=== PATIENT | female | born 1960 | race Two or more races ===

== ENCOUNTER 2020-06-11 14:09 | Emergency (ER) | payer OTHER ==
[~2020-06-11 14:09] MED LIST: BACTRIM DS TAB1 EACH PO; CLEOCIN HCL300 MG PO; CYCLOBENZAPRINE10 MG PO; IBUPROFEN600 MG PO; NAPROSYN500 MG PO
[2020-06-11 14:51] LABS: HEMOGLOBIN 14.8 gm/dl (12.3-15.3); RED BLOOD COUNT 4.48 M/UL (4.00-5.10); WHITE BLOOD COUNT 10.2 K/UL (4.5-11.0)
[2020-06-11 15:19] LABS: BUN/CREATININE RATIO 21 (0-10)
[2020-06-11] MEDS ORDERED: K-DUR TAB 10 M10 MEQ PO (17:55)
[2020-06-11] MEDS ORDERED: ZOFRAN4 MG PO (17:55)
== END 2020-06-11 18:30 | disposition home or self-care (01) ==
LOC: ER1 14:09
PROVIDERS: Family Medicine
DX: E87.6 Hypokalemia (principal); I10 Essential (primary) hypertension; E11.9 Type 2 diabetes mellitus without complications; Z90.710 Acquired absence of both cervix and uterus; Z20.822 Contact with and (suspected) exposure to COVID-19
CPT/HCPCS: 80053; 81001; 82150; 83690; 85025; 96374; 99284; J2405; U0002

== ENCOUNTER 2020-08-16 14:05 | Emergency (ER) | payer OTHER ==
[~2020-08-16 14:05] MED LIST changes: +K-DUR TAB 10 M10 MEQ PO; +ZOFRAN4 MG PO
[2020-08-16 14:50] LABS: HEMOGLOBIN 14.6 gm/dl (12.3-15.3); RED BLOOD COUNT 4.48 M/UL (4.00-5.10); WHITE BLOOD COUNT 12.1 K/UL (4.5-11.0)
[2020-08-16 15:08] LABS: BUN/CREATININE RATIO 26 (0-10)
[2020-08-16] MEDS ORDERED: ZOFRAN4 MG PO (17:24)
== END 2020-08-16 17:35 | disposition home or self-care (01) ==
LOC: ER1 14:05
PROVIDERS: Preventive Medicine Occupational Medicine
DX: A08.4 Viral intestinal infection, unspecified (principal); I10 Essential (primary) hypertension; E11.9 Type 2 diabetes mellitus without complications; Z20.822 Contact with and (suspected) exposure to COVID-19; Z79.4 Long term (current) use of insulin; Z90.710 Acquired absence of both cervix and uterus
CPT/HCPCS: 0240U; 74019; 80053; 81001; 82140; 82550; 82553; 83690; 83874; 84484; 85025; 85652; 86140; 87086; 96374; 96375; 99284; C9113; J2405

== ENCOUNTER 2021-09-10 13:29 | Emergency (ER) | payer OTHER ==
[2021-09-10 14:13] LABS: RED BLOOD COUNT 3.72 M/UL (4.00-5.10); WHITE BLOOD COUNT 17.3 K/UL (4.5-11.0)
== END 2021-09-10 17:12 | disposition left against medical advice (07) ==
LOC: ER1 13:29
PROVIDERS: Emergency Medicine
DX: R10.9 Unspecified abdominal pain (principal); R11.2 Nausea with vomiting, unspecified; E11.9 Type 2 diabetes mellitus without complications; I10 Essential (primary) hypertension
CPT/HCPCS: 80053; 81001; 83690; 85025

== ENCOUNTER 2021-09-11 10:19 | Inpatient (IN) | payer OTHER ==
[~2021-09-11] VITALS: Ht 157.5 cm; Wt 81.2 kg
[2021-09-11 11:53] LABS: HEMOGLOBIN 11.7 gm/dl (12.3-15.3); RED BLOOD COUNT 3.6 M/UL (4.00-5.10); WHITE BLOOD COUNT 16.5 K/UL (4.5-11.0)
[2021-09-11 12:08] LABS: BUN/CREATININE RATIO 15 (0-10)
[2021-09-12 04:22] LABS: WHITE BLOOD COUNT 12.4 K/UL (4.5-11.0)
[2021-09-12 04:32] LABS: RED BLOOD COUNT 3.14 M/UL (4.00-5.10)
[2021-09-12] MEDS ORDERED: OMEPRAZOLE20 MG PO (11:29)
[2021-09-12] MEDS ORDERED: CLONAZEPAM1 MG PO (11:29)
[2021-09-12] MEDS ORDERED: PROAIR HFA8.5 GM INH (11:30)
[2021-09-12] MEDS ORDERED: NOVOLOG 10100 UNITS/ SC (11:33)
[2021-09-12] MEDS ORDERED: LOSARTAN POTASS50 MG PO (11:33)
[2021-09-12] MEDS ORDERED: NAPROXEN500 MG PO (11:34)
[2021-09-12] MEDS ORDERED: NITROGLYCERIN0.4 MG SL (11:35)
[2021-09-12] MEDS ORDERED: AMLODIPINE BESYL5 MG PO (11:36)
[2021-09-12] MEDS ORDERED: GABAPENTIN800 MG PO (11:36)
[2021-09-12] MEDS ORDERED: ATORVASTATIN CA20 MG PO (11:37)
[2021-09-12] MEDS ORDERED: ASPIRIN 325MG325 MG PO (11:37)
[2021-09-12] MEDS ORDERED: BASAGLAR K100 UNIT/1 SQ (11:38)
[2021-09-12] MEDS ORDERED: LEVOTHYROXINE100 MCG PO (11:39)
[2021-09-12] MEDS ORDERED: LISINOPRIL10 MG PO (11:39)
[2021-09-12] MEDS ORDERED: METFORMIN HCL1000 MG PO (11:40)
[2021-09-12] MEDS ORDERED: LORATADINE10 MG PO (11:40)
[2021-09-12 12:05] LABS: CANDIDA ALBICANS Not Detected (Negative); CANDIDA KRUSEI Not Detected (Negative); CANDIDA TROPICALIS Not Detected (Negative); HAEMOPHILUS INFLUENZAE Not Detected (Negative); KLEBSIELLA OXYTOCA Not Detected (Negative); KLEBSIELLA PNEUMONIAE Not Detected (Negative); KPC-CARBAPENEM-RESISTANCE GENE Not Detected (Negative); PROTEUS Not Detected (Negative); PSEUDOMONAS AERUGINOSA Not Detected (Negative); SERRATIA MARCESANS Not Detected (Negative); STAPHYLOCOCCUS Not Detected (Negative); STAPHYLOCOCCUS AUREUS Not Detected (Negative); STREP AGALACTIAE (GROUP B) Not Detected (Negative); STREP PYOGENES (GROUP A) Not Detected (Negative); STREPTOCOCCUS Not Detected (Negative); vanA/B (VANCOMYCIN RESIST GENE Not Detected (Negative)
[2021-09-12 13:31] LABS: ESCHERICHIA COLI DETECTED (Negative)
[2021-09-13 06:37] LABS: RED BLOOD COUNT 3.15 M/UL (4.00-5.10); WHITE BLOOD COUNT 10.5 K/UL (4.5-11.0)
[2021-09-15 01:44] LABS: HEMOGLOBIN 10.4 gm/dl (12.3-15.3); RED BLOOD COUNT 3.25 M/UL (4.00-5.10)
[2021-09-16] MEDS ORDERED: CEFUROXIME250 MG PO (10:39)
[2021-09-16] MEDS ORDERED: GABAPENTIN400 MG PO (10:39)
[2021-09-16] MEDS ORDERED: HYDROCODON-ACE1 EAC4 PO (10:48)
[2021-09-16 10:53] LABS: WHITE BLOOD COUNT 11.6 K/UL (4.5-11.0)
[2021-09-16 11:04] LABS: RED BLOOD COUNT 3.71 M/UL (4.00-5.10)
== END 2021-09-16 13:45 | disposition home or self-care (01) | DRG 872 ==
LOC: ER1 10:19 → CDU 15:30 → MED SURG 4 15:30
PROVIDERS: Emergency Medicine; Internal Medicine; Physician Assistant Medical; ADMIT Internal Medicine
DX: A41.51 Sepsis due to Escherichia coli [E. coli] (principal); N17.9 Acute kidney failure, unspecified; E87.1 Hypo-osmolality and hyponatremia; N10 Acute pyelonephritis; Z20.822 Contact with and (suspected) exposure to COVID-19; E66.9 Obesity, unspecified; E87.6 Hypokalemia; R65.20 Severe sepsis without septic shock; I12.9 Hypertensive chronic kidney disease with stage 1 through stage 4 chronic kidney disease, or unspecified chronic kidney disease; N20.0 Calculus of kidney; E11.22 Type 2 diabetes mellitus with diabetic chronic kidney disease; J44.9 Chronic obstructive pulmonary disease, unspecified; E78.5 Hyperlipidemia, unspecified; E03.9 Hypothyroidism, unspecified; D63.1 Anemia in chronic kidney disease; G89.29 Other chronic pain; N18.9 Chronic kidney disease, unspecified; Z96.653 Presence of artificial knee joint, bilateral; R53.81 Other malaise; Z90.710 Acquired absence of both cervix and uterus; Z79.4 Long term (current) use of insulin; Z68.32 Body mass index [BMI] 32.0-32.9, adult
CPT/HCPCS: 36415; 80048; 80053; 81001; 82550; 82553; 82962; 83605; 83690; 83735; 84484; 85025; 85027; 86140; 87040; 87077; 87086; 87150; 87186; 93005; 96374; 96375; 97161; 99285; J0696; J1650; J2185; J2270; J2405; J7030